=== PATIENT | male | born 1990 | race African-American/Black ===

== ENCOUNTER 2021-03-30 11:27 | Emergency (ER) | payer OTHER ==
[~2021-03-30] VITALS: Ht 182.9 cm; Wt 90.7 kg
[2021-03-30 13:27] VITALS: BP 125/90
== END 2021-03-30 13:28 | disposition home or self-care (01) ==
LOC: M.ERS 11:27
DX: U07.1 COVID-19 (principal)

== ENCOUNTER 2021-04-06 08:30 | Emergency (ER) | payer OTHER ==
[~2021-04-06] VITALS: Ht 182.9 cm; Wt 90.7 kg
[2021-04-06 10:59] VITALS: BP 118/68
== END 2021-04-06 11:00 | disposition home or self-care (01) ==
LOC: M.ERS 08:30
DX: Z20.822 Contact with and (suspected) exposure to COVID-19 (principal)

== ENCOUNTER 2021-04-09 13:20 | Emergency (ER) | payer OTHER ==
[~2021-04-09] VITALS: Ht 175.3 cm; Wt 90.7 kg
[2021-04-09 14:52] VITALS: BP 130/84
== END 2021-04-09 14:52 | disposition home or self-care (01) ==
LOC: M.ERS 13:20
DX: Z20.822 Contact with and (suspected) exposure to COVID-19 (principal); F17.210 Nicotine dependence, cigarettes, uncomplicated